=== PATIENT | female | born 1950 | race Caucasian/White ===

== ENCOUNTER → 2016-09-08 | Outpatient (CLI) | payer OTHER ==
--- NOTE | 2016-09-08 16:51 | DIAGNOSTIC IMAGING REPORT ---
PROCEDURE: XR FINGER - LEFT INDICATION: PAIN LEFT MIDDLE FINGER TECHNIQUE: A P hand and two views of the left third digit. COMPARISON: None. FINDINGS: Normal mineralization. No fractures. Normal osseous alignment. No suspicious soft-tissue calcification or radiodense foreign bodies. IMPRESSION: 1. Intact hand and third digit.
== END ==
LOC: XR SRH 14:29
DX: M79.645 Pain in left finger(s) (principal)